=== PATIENT | male | born 1990 | race African-American/Black ===

== ENCOUNTER 2016-07-08 13:47 | Emergency (ER) | payer OTHER ==
[~2016-07-08 13:47] MED LIST: ANTI2TAB PO; ZOFR4TAB3 PO
[2016-07-08 13:51] VITALS: BP 125/70; PULSE 62; RESP 12; TEMP 97.9; O2SAT 97
[2016-07-08] MEDS ORDERED: SODIUM CHLORIDE 0.9% FLUSH 5 ML FLUSH IVF PRN (15:30)
[2016-07-08] MEDS ORDERED: AZITHROMYCIN PWD FOR SUSP 1 GM PACKET PO ONE (15:30)
[2016-07-08] MEDS ORDERED: LIDOCAINE HCL 1% PF 30 ML VIAL XX ONE (15:30)
[2016-07-08] MEDS ORDERED: metroNIDAZOLE 500 MG TAB PO ONE (15:30)
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
[2016-07-08 16:05] LABS: BLOOD, URINE NEG (NEG); GLUCOSE,URINE NEG (NEG); KETONE, URINE NEG (NEG); NITRITE,URINE NEG (NEG); URINE COLOR YELLOW (YELLW/STRAW)
[2016-07-08 18:11] LABS: CHLAMYDIA PCR NOT DETECTED (NOT DETECT); NEISSERIA PCR DETECTED (NOT DETECT)
== END 2016-07-08 15:56 | disposition home or self-care (01) ==
LOC: NEPB 13:47
DX: R30.0 Dysuria (principal)
CPT/HCPCS: 81001; 87491; 87591; 96372; 99283; J0696